=== PATIENT | male | born 1960 | race Caucasian/White ===

== ENCOUNTER → 2019-06-16 | Outpatient (CLI) | payer OTHER ==
--- NOTE | 2019-06-16 14:44 | RAD ---
EXAM: Right knee, 3 views. HISTORY: Arthroplasty. COMPARISON: None. FINDINGS: 3 views of the right knee are obtained. There is a right knee arthroplasty in expected position. There is a small joint effusion. IMPRESSION: Right knee arthroplasties in expected position. Small joint effusion. Electronically signed by: Brittany Hui MD (06/16/2019 2:41 PM) [facility] [place]
== END | disposition home or self-care (01) ==
LOC: DXRAD 13:22
PROVIDERS: ATTEND Orthopaedic Surgery
DX: M25.461 Effusion, right knee (principal); Z96.651 Presence of right artificial knee joint
CPT/HCPCS: 73562